=== PATIENT | female | born 1970 | race Caucasian/White ===

== ENCOUNTER 2020-07-05 02:49 | Emergency (ER) | payer BC, OTHER ==
[2020-07-05] MEDS ORDERED: Ondansetron 4 MG/2 ML SDV ONE (03:30)
[2020-07-05] MEDS ORDERED: HYDROmorphone 0.5 MG/0.5 ML Syringe ONE ×2 (03:30→04:42)
--- NOTE | 2020-07-05 03:30 | EDM.PDOC ---
<Aminta Salazar - Last Filed: 07/05/20 04:43> ED HPI GENERAL MEDICAL PROBLEM - General Chief Complaint: Abdominal Pain Stated Complaint: ABD PAIN Time Seen by Provider: 07/05/20 03:25 Source of Information: Reports: Patient History Limitations: Reports: No Limitations - History of Present Illness INITIAL COMMENTS - FREE TEXT/NARRATIVE: pt has had vag bleeding for about 3 weeks. Tonight suddenly she developed severe abdomanal pain mid abdoman. She felt like the vag bleeding did get heavier. She feels like the pain is alot worse if she tries to lie down. Onset: Sudden Duration: Hour(s):, Heavy Location: Reports: Abdomen, Other ( Pain ia accross the entire abdoman worst on the rt lower abdoman. ) Quality: Reports: Sharp, Stabbing, Other (pt has had marked chilling. ) Abdomen Pain Score (Numeric/FACES): 8 - Related Data Allergies Allergy/AdvReac Type Severity Reaction Status Date / Time Iodinated Contrast Media Allergy Difficulty Verified 07/05/20 03:40 Breathing Penicillins Allergy Hives Verified 07/05/20 03:00 Sulfa (Sulfonamide Allergy Hives Verified 07/05/20 03:00 Antibiotics) Home Meds: Home Meds Acetaminophen/HYDROcodone [[place] 325-5 MG] 1 - 2 tab PO Q6H PRN #14 tab 07/05/20 [Rx] Ibuprofen 600 mg PO Q6H PRN 07/05/20 [History] Ondansetron [Zofran ODT] 4 mg PO Q6H PRN #8 tab.dis 07/05/20 [Rx] Past Medical History HEENT History: Reports: Other (See Below) Other HEENT History: blind in right eye PATTERN HAND History: Reports: Social & Family History - Tobacco Use Smoking Status *Q: Never Smoker - Caffeine Use Caffeine Use: Reports: Other - Recreational Drug Use Recreational Drug Use: No ED ROS GENERAL - Review of Systems Review Of Systems: See Below Constitutional: Reports: Chills, Malaise HEENT: Reports: No Symptoms Respiratory: Reports: No Symptoms Cardiovascular: Reports: No Symptoms Endocrine: Reports: Polyuria GI/Abdominal: Reports: Abdominal Pain, Other ( vaginal bleeding. ) : Reports: Hematuria, Pain Musculoskeletal: Reports: No Symptoms Skin: Reports: No Symptoms ED EXAM, RENAL/ - Physical Exam Exam: See Below Text/Narrative:: pt arrived with severe lower abdomanal pain more on the rt than the left. This pain started suddenly today. Exam Limited By: No Limitations General Appearance: Alert, Severe Distress, Other (pt hurt more when she did lie down. ) Ears: Normal TMs Nose: Normal Inspection Throat/Mouth: Normal Inspection Head: Atraumatic Neck: Normal Inspection Respiratory/Chest: No Respiratory Distress Cardiovascular: Regular Rate, Rhythm GI/Abdominal: No Distention, Guarding, Tender, Other (pain in the rt lower abdoman. ) (Female) Exam: Deferred Rectal (Female) Exam: Other ( stools have been normal. ) Back Exam: Normal Inspection Extremities: Normal Inspection Neurological: Alert, Oriented, Normal Cognition Psychiatric: Normal Affect Course - Re-Assessments/Exams Free Text/Narrative Re-Assessment/Exam: 07/05/20 07:31 Pt is anemic probably from the bleeding that she has had for the past 3 weeks.She has a normal wbc. Her other labslok ok except that her crp is haydee vated. She had a cat scan which showed a large fibroid uterus. Her gb did show stones present. The rest of the cat scan was normal. Departure - Departure Disposition: Home, Self-Care 01 Clinical Impression: Abdominal pain Qualifiers: Abdominal location: generalized Qualified Code(s): R10.84 - Generalized abdominal pain - Discharge Information Prescriptions: Acetaminophen/HYDROcodone [[place] 325-5 MG] 1 - 2 tab PO Q6H PRN #14 tab PRN Reason: Pain Ondansetron [Zofran ODT] 4 mg PO Q6H PRN #8 tab.dis PRN Reason: Nausea Referrals: PCP,None [Primary Care Provider] - Forms: ED Department Discharge Additional Instructions: Use Zofran as needed for nausea control and [place] for pain relief. May add ibuprofen 600 mg every 6 hrs with food for added relief. Recheck with your provider soon for reassessment. You may need referral to a [employer] doctor if symptoms persist. Sepsis Event Note (ED) - Evaluation Sepsis Screening Result: No Definite Risk <Wayne Myers - Last Filed: 07/05/20 08:52> Course - Vital Signs Last Recorded V/S: Last Vital Signs Temp 36.6 C 07/05/20 03:01 Pulse 78 07/05/20 08:24 Resp 16 07/05/20 08:24 BP 131/67 07/05/20 08:24 Pulse Ox 99 07/05/20 08:24 - Orders/Labs/Meds Orders: Active Orders 24 hr Category Date Time Status Abdomen Ltd [US] Stat Exams 07/05/20 04:40 Ordered Pelvis Non OB Comp [US] Stat Exams 07/05/20 04:40 Taken CULTURE URINE [] Stat Lab 07/05/20 03:00 Received Sodium Chloride 0.9% [Normal Saline] 1,000 ml Med 07/05/20 03:30 Active IV ASDIRECTED Medication Orders Sodium Chloride (Normal Saline) 1,000 mls @ 999 mls/hr IV ASDIRECTED LILLY Last Admin: 07/05/20 03:31 Dose: 999 mls/hr Documented by: KELSY Labs: Laboratory Tests 07/05/20 07/05/20 07/05/20 Range/Units 03:20 03:20 03:20 WBC 8.8 (4.5-11.0) K/uL RBC 4.56 (3.30-5.50) M/uL Hgb 10.7 L (12.0-15.0) g/dL Hct 34.3 L (36.0-48.0) % MCV 75 L (80-98) fL MCH 24 L (27-31) pg MCHC 31 L (32-36) % Plt Count 436 H (150-400) K/uL Neut % (Auto) 69 H (36-66) % Lymph % (Auto) 23 L (24-44) % [place] % (Auto) 6 (2-6) % Eos % (Auto) 2 (2-4) % Baso % (Auto) 0 (0-1) % Sodium 139 L (140-148) mmol/L Potassium 3.8 (3.6-5.2) mmol/L Chloride 102 (100-108) mmol/L Carbon Dioxide 27 (21-32) mmol/L Anion Gap 13.8 (5.0-14.0) mmol/L BUN 11 (7-18) mg/dL Creatinine 1.0 (0.6-1.0) mg/dL Est Cr Clr Drug Dosing 71.12 mL/min Estimated GFR (MDRD) 59 L (>60) Glucose 133 H (74-106) mg/dL Calcium 8.6 (8.5-10.1) mg/dL Total Bilirubin 0.2 (0.2-1.0) mg/dL AST 15 (15-37) U/L ALT 14 (12-78) U/L Alkaline Phosphatase 74 (46-116) U/L C-Reactive Protein 3.11 H (0.0-0.3) mg/dL Total Protein 7.4 (6.4-8.2) g/dL Albumin 3.2 L (3.4-5.0) g/dL Globulin 4.2 H (2.3-3.5) g/dL Albumin/Globulin Ratio 0.8 L (1.2-2.2) Lipase (73-393) U/L 07/05/20 Range/Units 03:22 WBC (4.5-11.0) K/uL RBC (3.30-5.50) M/uL Hgb (12.0-15.0) g/dL Hct (36.0-48.0) % MCV (80-98) fL MCH (27-31) pg MCHC (32-36) % Plt Count (150-400) K/uL Neut % (Auto) (36-66) % Lymph % (Auto) (24-44) % [place] % (Auto) (2-6) % Eos % (Auto) (2-4) % Baso % (Auto) (0-1) % Sodium (140-148) mmol/L Potassium (3.6-5.2) mmol/L Chloride (100-108) mmol/L Carbon Dioxide (21-32) mmol/L Anion Gap (5.0-14.0) mmol/L BUN (7-18) mg/dL Creatinine (0.6-1.0) mg/dL Est Cr Clr Drug Dosing mL/min Estimated GFR (MDRD) (>60) Glucose (74-106) mg/dL Calcium (8.5-10.1) mg/dL Total Bilirubin (0.2-1.0) mg/dL AST (15-37) U/L ALT (12-78) U/L Alkaline Phosphatase (46-116) U/L C-Reactive Protein (0.0-0.3) mg/dL Total Protein (6.4-8.2) g/dL Albumin (3.4-5.0) g/dL Globulin (2.3-3.5) g/dL Albumin/Globulin Ratio (1.2-2.2) Lipase 104 (73-393) U/L Meds: Medications Generic Name Dose Route Start Last Admin Trade Name Michaelq PRN Reason Stop Dose Admin Sodium Chloride 1,000 mls @ 999 mls/hr 07/05/20 03:30 07/05/20 03:31 Normal Saline IV 999 mls/hr ASDIRECTED LILLY Administration Discontinued Medications Generic Name Dose Route Start Last Admin Trade Name Freq PRN Reason Stop Dose Admin Hydromorphone HCl 0.5 mg 07/05/20 03:22 07/05/20 03:35 Dilaudid IVPUSH 07/05/20 03:23 0.5 mg ONETIME ONE Administration Hydromorphone HCl 0.5 mg 07/05/20 04:39 07/05/20 04:44 Dilaudid IVPUSH 07/05/20 04:40 0.5 mg ONETIME ONE Administration Hydromorphone HCl Confirm 07/05/20 03:30 Dilaudid Administered 07/05/20 03:31 Dose 0.5 mg .ROUTE .STK-MED ONE Hydromorphone HCl Confirm 07/05/20 04:42 Dilaudid Administered 07/05/20 04:43 Dose 0.5 mg .ROUTE .STK-MED ONE Ondansetron HCl 4 mg 07/05/20 03:21 07/05/20 03:32 Zofran IVPUSH 07/05/20 03:22 4 mg ONETIME ONE Administration Ondansetron HCl Confirm 07/05/20 03:30 Zofran Administered 07/05/20 03:31 Dose 4 mg .ROUTE .STK-MED ONE Simethicone 160 mg 07/05/20 08:21 07/05/20 08:30 Simethicone PO 07/05/20 08:22 160 mg ONETIME ONE Administration - Radiology Interpretation Free Text/Narrative:: Abdominal and pelvic US-stone in GB, no other pathology. Large uterus with many fibroids. Large amount of gas present. Some moderate sized cysts in the R ovary, L ovary not seen. - Re-Assessments/Exams Free Text/Narrative Re-Assessment/Exam: 07/05/20 08:49 pain improved, but some still present. Wants to go home. Has a primary to follow up with. Departure - Departure Time of Disposition: 08:50 Condition: Fair - Discharge Information *PRESCRIPTION DRUG MONITORING PROGRAM REVIEWED*: No *COPY OF PRESCRIPTION DRUG MONITORING REPORT IN PATIENT EDWIN: No Sepsis Event Note (ED) - Focused Exam Vital Signs: Vital Signs Temp Pulse Resp BP Pulse Ox 07/05/20 08:24 78 16 131/67 99 07/05/20 07:00 72 119/78 97 07/05/20 05:50 78 136/64 95 07/05/20 03:01 36.6 C 103 H 18 136/87 95
[2020-07-05] MEDS: Sodium Chloride 0.9% 1,000 ML IV SCH (03:31)
[2020-07-05] MEDS: Ondansetron 4 MG/2 ML SDV IVPUSH ONE (03:32)
[2020-07-05] MEDS: HYDROmorphone 0.5 MG/0.5 ML Syringe IVPUSH ONE ×2 (03:35→04:44)
--- NOTE | 2020-07-05 04:13 | CRLCT ---
INDICATION: Severe mid abdominal pain, vaginal bleeding TECHNIQUE: CT abdomen and pelvis acquired without IV contrast. COMPARISON: None FINDINGS: Lower chest: Calcified granuloma left lower lobe. Liver: Small amount of simple free fluid around liver. Spleen: Unremarkable. Pancreas: Unremarkable. Gallbladder and bile ducts: Cholelithiasis. Adrenal glands: Unremarkable. Kidneys: Simple cysts on the kidneys. GI tract: Colonic diverticulosis. Appendix is not seen. Vascular structures: Unremarkable. Lymph nodes: Unremarkable. Miscellaneous: Unremarkable. No free air or significant free fluid. Pelvic Organs: The uterus measures 14.6 x 9.2 x 13.8 cm. Lobular contour of the uterus. Possible blood within the cervical canal. Bones: Unremarkable for age. IMPRESSION: No acute intra-abdominal inflammatory process identified. Note that the appendix is not seen on this exam. Enlarged, lobular uterus consistent with uterine fibroids. Possible blood in the cervical canal. Pelvic ultrasound may be useful for further evaluation. In Cholelithiasis. Colonic diverticulosis. Small amount of free fluid. Please note that all CT scans at this facility use dose modulation, iterative reconstruction, and/or weight-based dosing when appropriate to reduce radiation dose to as low as reasonably achievable. Dictated by Kaitlynn Gutierrez MD @ Jul 05 2020 4:04AM Signed by Dr. Kaitlynn Gutierrez @ Jul 05 2020 4:12AM
[2020-07-05] MEDS: Simethicone 80 MG Tab.Chew PO ONE (08:30)
--- NOTE | 2020-07-05 09:06 | US ---
Pelvis Non OB Comp CLINICAL HISTORY: Uterine enlargement FINDINGS: Uterus measures 15.3 x 11.4 x 8.1 cm. It is heterogeneous with multiple nodules. These range in size from 3 cm to 5 cm. Endometrial stripe is thickened measuring 7.7 mm. There is trace fluid in the endometrial cavity Right ovary measures 5.4 x 4.4 x 2.8 cm. There is normal color flow. There is a 3.9 x 2.9 x 2.9 cm cyst. Left ovary is not seen. There is free fluid in the cul-de-sac. IMPRESSION: Moderate uterine enlargement likely due to fibroids In vitro thickening with some trace fluid in the endometrial cavity Right ovarian cyst Left ovary is not seen Free fluid in the pelvis
--- NOTE | 2020-07-05 09:27 | US ---
Abdomen Ltd CLINICAL HISTORY: Right upper quadrant pain COMPARISON: Current CT. TECHNIQUE: Real-time images were obtained through the right upper quadrant. FINDINGS: The liver is free of mass or biliary dilatation. There is a fluid collection seen contiguous to the upper anterior aspect of the liver on CT. This is not the seen on the ultrasound. There is a 6 x 8 x 7 mm hyperechoic well-demarcated focus in the left lobe of the liver. The gallbladder contains 2 gallstones. There is no wall thickening. The common bile duct measures 4 mm. The pancreas is partially obscured. No mass is seen. The right kidney contains a 3.2 x 2.7 x 3.0 cm cyst. The IVC is normal. IMPRESSION: Small hemangioma left lobe liver Cholelithiasis with no biliary dilatation Right renal cyst
== END 2020-07-05 09:13 | disposition home or self-care (01) ==
LOC: JP.ED 02:49
DX: R10.84 Generalized abdominal pain (principal); Z88.0 Allergy status to penicillin; Z88.2 Allergy status to sulfonamides; Z91.041 Radiographic dye allergy status
CPT/HCPCS: 36415; 74176; 76705; 76856; 80053; 83690; 85025; 86140; 87086; 96361; 96374; 96375; 96376; 99284; A9270; J1170; J2405; J7030